=== PATIENT | female | born 1955 | race Caucasian/White ===

== ENCOUNTER → 2016-08-18 | Outpatient (CLI) | payer OTHER ==
--- NOTE | ~2016-08-18 | NM86 ---
[facility] A Service of [facility] RADIOLOGY TEXT RESULTS PATIENT: JANICE SHANNON LOCATION: [facility] : 57 UNIT #: [id number] AGE: [address]: CHAS CARRERA MD SEX: F ORDER DR: [id number] [facility] [address] [place], [place] [address] [id number] O MR#: [id number] Acc #: [id number] NAME: JANICE SHANNON : 1955 SEX: F STUDY DATE/TIME: 08/18/2016 8:11 UNIT: [facility] ROOM: STUDY DESCRIPTION: NM Thyroid Img W Uptake Attending Physician: Chas Carrera M.D. Referring Physician: Chas Carrera M.D. Ordering Physician: Chas Carrera M.D. Primary Care Physician: Vince Tristan M.D. MEDICAL IMAGING REPORT This report is preliminary unless electronic signature is present EXAM Nuclear medicine thyroid iodine uptake scan. HISTORY Hyperthyroidism. Prior history of thyroid disease in sister (goiter). History of heart palpitations, dry skin on hands. Patient states history of nodules left side found on ultrasound 2 weeks ago. Hard time sleeping. Works a lot. Abnormal lab day before ultrasound from regular checkup. Hair thinning over last year or 2. FINDINGS Patient ingested 177.9 microcuries I-123 on August 17, 2016. The patient returned 18 August 2016 for 24-hour thyroid iodine uptake calculation. Static images of the thyroid were obtained. 24-hour uptake calculated. The 24-hour thyroid iodine uptake is abnormally elevated at 56.1% (upper limits of normal 30-35%). The radiotracer accumulates predominantly in the left thyroid lobe. There is a faint suggestion of tracer in right thyroid lobe, but this is quite faint. The patient gives no history of prior thyroid surgery. Within the left thyroid lobe uptake, in [id number] pole there is a rounded area of relative hypointensity concerning for cold nodule. Correlation with ultrasound recommended. If a nodule can be localized to this area on ultrasound, biopsy would be recommended. IMPRESSION 1. Abnormal elevation of 24-hour thyroid iodine uptake at 56.1%. This is above the upper limits of normal, approximately 30-35%). 2. Thyroid iodine uptake localizes predominately to the left thyroid lobe with minimal uptake seen in the right thyroid lobe. Patient gives no history of prior thyroid surgery. 3. Within the left thyroid lobe there is what appears to be a cold nodule in mid to lower portion of the left thyroid lobe. Correlation [facility] A Service of [facility] RADIOLOGY TEXT RESULTS PATIENT: JANICE SHANNON LOCATION: [facility] : 57 UNIT #: [id number] AGE: [address]: CHAS CARRERA MD SEX: F ORDER DR: with reported outside ultrasound recommended. If there is a nodule corresponding to this area of relative photopenia on the radionuclide scan, fine-needle aspiration sampling of the cold nodule would be strongly recommended. 4. Findings discussed with Dr. Carrera at time of this dictation. Dictated by... Aj Hanks M.D. THIS IS AN ELECTRONICALLY VERIFIED REPORT Aj Hanks M.D. at 08/19/2016 5:36 PM Ananya TD: 08/18/2016 11:49 JOB #: [id number] MEDICAL IMAGING REPORT Page 1 of 1 COPY
== END | disposition home or self-care (01) ==
LOC: CNUC 06:29
DX: E04.2 Nontoxic multinodular goiter (principal); E05.90 Thyrotoxicosis, unspecified without thyrotoxic crisis or storm; E04.1 Nontoxic single thyroid nodule; R94.6 Abnormal results of thyroid function studies
CPT/HCPCS: 78014; A9516